=== PATIENT | male | born 1955 | race African-American/Black ===

== ENCOUNTER 2018-05-17 07:26 | Outpatient (CLI) | payer OTHER ==
--- NOTE | 2018-05-17 08:35 | ULT ---
RIGHT UPPER QUADRANT UTLRASOUND: INDICATION: Elevated liver function enzymes. FINDINGS: There is increased echogenicity of the hepatic parenchyma relative to the adjacent right kidney. No acute gallbladder pathology. The imaged common duct is normal in caliber at 3 mm. There is no ascit es. IMPRESSION: 1. Increased echogenicity of the hepatic parenchyma which can be seen in the setting of hepatic stea tosis. 2. No acute gallbladder pathology. POS: RUBY
== END 2018-05-17 07:27 | disposition home or self-care (01) ==
LOC: BICULT 07:26
PROVIDERS: ATTEND Family Medicine
DX: R74.8 Abnormal levels of other serum enzymes (principal); R93.2 Abnormal findings on diagnostic imaging of liver and biliary tract
CPT/HCPCS: 76705